=== PATIENT | female | born 1980 | race African-American/Black ===

== ENCOUNTER 2019-01-03 15:10 | Emergency (ER) | payer OTHER ==
[~2019-01-03] VITALS: Ht 172.7 cm; Wt 79.8 kg
[2019-01-03 15:44] VITALS: BP 116/86
[2019-01-03] MEDS ORDERED: SPIRIVA INH (15:47)
[2019-01-03] MEDS ORDERED: ACCUNEB SO1.25 MG/1 INH (15:47)
[2019-01-03] MEDS ORDERED: PREDNISONE 20 M20 M1 PO (16:40)
== END 2019-01-03 16:45 | disposition home or self-care (01) ==
LOC: ER 15:10
DX: J45.901 Unspecified asthma with (acute) exacerbation (principal); Z88.1 Allergy status to other antibiotic agents